=== PATIENT | male | born 2000 | race Caucasian/White ===

== ENCOUNTER 2023-02-13 10:03 | Observation (INO) ==
[2023-02-13] MEDS ORDERED: SODIUM CHLORIDE 0.9% 1,000 ML IV SCH (10:45)
--- NOTE | 2023-02-13 10:47 | Emergency Department Note ---
Impression & Plan Laceration of right chest wall ED Provider Note CHIEF COMPLAINT: Intentional overdose HISTORY OF PRESENT ILLNESS: This 22-year-old male patient past medical history of previous suicide attempt about 4 years ago presents to the emergency department with complaints of Tylenol overdose in an attempt to kill himself. The patient states he took approximately 50 tablets of extra strength Tylenol at 5 AM this morning. Patient also notes after further questioning that he self- mutilating with a razor. He has some dried blood to his anterior chest. When asked if he would like to have us contact one of his parents, he stated not at this time however his father would be his legal contact if needed. He prefers the support of his friend at the bedside. REVIEW OF SYSTEMS: A review of systems was performed with positives and pertinent negatives listed in the history of present illness. 10 systems were reviewed and are otherwise negative. ALLERGIES: see below MEDICATIONS: see below PMH: see below SOCIAL HISTORY: see below DDx: Mood disorder, infection, hypoglycemia, electrolyte abnormalities, toxicologic, trauma, as well as other pathologies. PHYSICAL EXAM: Vital signs reviewed. General: Well-appearing 22 yo male, in no significant distress. HEENT: No scleral icterus, PERRLA, neck supple. Atraumatic. Cardiovascular: Regular rate and rhythm, no extra sounds. Pulmonary: Clear to auscultation bilaterally, normal work of breathing. Abdomen: Soft, nontender, nondistended, positive bowel sounds. Musculoskeletal: Atraumatic, no peripheral edema. Neurologic: Patient awake alert and oriented x 3, speech is clear Psych: Positive SI, negative HI Skin: Warm, dry, no rash several lacerations to the anterior chest wall, notably right pectoralis with dried blood, no active bleeding. EMERGENCY DEPARTMENT COURSE/MDM: This patient was evaluated and appeared to be in no significant distress. IV access was obtained and laboratory work was drawn. Patient was placed on the investigation division sergeant noted to be in a normal sinus rhythm. Patient did receive IV normal saline solution and 4 mg of IV Zofran. The patient's 6-hour Tylenol level was 127. I did speak with poison control who felt the patient was toxic after putting the numbers. Patient's LFTs are within normal limits. IV N-acetylcysteine was initiated and the patient's case was discussed with the hospitalist service. Patient will be admitted by the medical service with psychiatric consultation. He is aware of the plan and voluntary for admission. 302 petitioning statement has been placed on the chart I case management. MONITORING: An order for cardiac monitoring was placed and the patient is noted to be in a normal sinus rhythm at 85 beats per minute. RADIOLOGY: Chest x-ray to my interpretation reveals no evidence of focal lung consolidation or failure. No pneumothorax. Otherwise defer to radiology's over read. EKG: To my interpretation reveals normal sinus rhythm at 69 bpm. QTc is 424. Normal ST segments. No PVC, no PAC. No previous for comparison. DISPOSITION: Admission Past Med/Surg History Medical History Acetaminophen overdose No pertinent past medical history No pertinent family history Surgical History No pertinent past surgical history Social History Smoking Status: Never smoker Hx Alcohol Use: Yes Alcohol type: beer Hx Substance Use: No Preferred Language: Jordanian Communication Ability: Effective Tour Consultant Required: No Beliefs That Will Affect Care: None Current Living Situation: Other Current Living Situation Comment: roommate Feels Safe at Home: Yes Gender Identity: Male Assistive Devices: None Allergies Allergies Allergy/AdvReac Type Severity Reaction Status Date / Time No Known Allergies Allergy Unverified 02/14/23 11:49 Home Meds Home Medications Medication Instructions Recorded Confirmed No Known Home Medications 11/29/22 11/29/22 Results & Data (ED) Vital Signs Vital Signs - 24 hr 02/13/23 10:14 Temperature 36.8 C Temperature Source Temporal Artery Scan Pulse Rate 67 Respiratory Rate 18 Blood Pressure 151/70 H Blood Pressure Mean 97 Pulse Oximetry 98 Oxygen Delivery Method Room Air Sepsis Recent Fever Within 48 Hours No Sepsis New/Unexplained Change in Mental Status No Sepsis Action Taken by Nursing No Action Required Home Medications Current Medication List: was personally reviewed by me Laboratory Data Attestation: I reviewed the patient's lab results. 02/13/23 10:52 02/15/23 05:42 Lab Results 02/13/23 02/13/23 02/13/23 Range/Units 10:52 10:53 12: WBC 7.70 (4.8-10.8) K/ul RBC 4.96 (4.70-6.10) M/uL Hgb 15.0 (14.0-18.0) g/dl Hct 43.3 (42.0-52.0) % MCV 87.3 (80.0-100.0) fL MCH 30.2 (25.0-34.0) pg MCHC 34.6 (32.0-36.0) g/dL RDW Std Deviation 38.2 (36.4-46.3) fL RDW Coeff of Ilya 11.9 (11.5-14.5) % Plt Count 227 (130-400) K/uL MPV 8.8 L (9.4-12.4) fL Immature Gran % (Auto) 0.8 % Neut % (Auto) 69.6 % Lymph % (Auto) 20.5 % [place] % (Auto) 6.9 % Eos % (Auto) 1.6 % Baso % (Auto) 0.6 % Neut # (Auto) 5.36 (1.40-6.50) K/uL Lymph # (Auto) 1.58 (1.20-3.40) K/uL [place] # (Auto) 0.53 (0.11-0.59) K/uL Eos # (Auto) 0.12 (0.00-0.50) K/uL Baso # (Auto) 0.05 (0.00-0.20) K/uL Immature Gran # (Auto) 0.06 (0.01-0.20) K/uL PT 11.9 (9.0-12.0) Seconds INR 1.1 (0.9-1.1) Sodium 138 (136-145) mmol/L Potassium 3.8 (3.5-5.1) mmol/L Chloride 103 (98-107) mmol/L Carbon Dioxide 25 (21-32) mmol/L Anion Gap 10 (3-11) BUN 13 (6-23) mg/dl Creatinine 1.02 (0.6-1.4) mg/dl Est Cr Clr Drug Dosing 132.1 ml/min Est GFR ( Amer) 120.4 ml/min Est GFR (Non-Af Amer) 103.8 ml/min BUN/Creatinine Ratio 12.7 (10-20) Glucose 131 H (70-99(Fasting)) mg/dl Lactate 1.9 (0.4-2.0) mmol/L Calcium 9.3 (8.6-10.3) mg/dl Phosphorus 2.9 (2.5-4.9) mg/dl Magnesium 1.8 (1.7-2.4) mg/dl Total Bilirubin 0.4 (0.2-1.0) mg/dl AST 17 (13-39) U/L ALT 11 (7-52) U/L Alkaline Phosphatase 87 (34-104) U/L Total Protein 7.6 (6.0-8.3) gm/dl Albumin 4.7 (3.4-5.0) gm/dl Globulin 2.9 (2.5-4.0) gm/dl Albumin/Globulin Ratio 1.6 (0.9-2) Salicylates < 3.0 L (3.0-30) mg/dl Acetaminophen 127 H (10-30) ug/ml Ethyl Alcohol mg/dL 50.8 H (<10.0) mg/dl SARS-CoV-2, RNA, NAAT NEGATIVE (NEGATIVE) Administered Medications Discontinued Medications Acetylcysteine (Acetylcysteine Iv 21 Hr Regimen (>40kg)) 1 each IV NOW STA; Protocol Stop: 02/13/23 12:08 Last Admin: 02/13/23 13:21 Dose: Not Given Documented By: EVANGELINA Acetylcysteine (Acetylcysteine Iv 21 Hr Regimen (>40kg)) 13,000 each IV NOW STA; Protocol Stop: 02/13/23 12:41 Last Admin: 02/13/23 13:23 Dose: Not Given Documented By: EVANGELINA Sodium Chloride (Nss) 1,000 mls @ 999 mls/hr IV .Q1H1M ALLEN Stop: 02/13/23 11:45 Last Infusion: 02/13/23 12:48 Dose: Infused Documented By: Admin: 02/13/23 10:51 Dose: 999 mls/hr Documented By: FIORDALIZA Acetylcysteine 8,740 mg/ (Dextrose) 1,043.7 mls @ 62.5 mls/hr IV ONCE ONE; Protocol Stop: 02/14/23 09:49 Last Infusion: 02/14/23 11:58 Dose: Infused Documented By: Admin: 02/13/23 19:03 Dose: 62.5 mls/hr Documented By: DONNA Acetylcysteine 4,370 mg/ (Dextrose) 521.85 mls @ 125 mls/hr IV ONCE ONE; Protocol Stop: 02/13/23 17:18 Last Infusion: 02/13/23 18:47 Dose: Infused Documented By: Admin: 02/13/23 14:36 Dose: 125 mls/hr Documented By: HEMANT Sodium Chloride (Nss) 1,000 mls @ 125 mls/hr IV .Q8H [facility] Stop: 03/15/23 12:14 Last Admin: 02/15/23 12:50 Dose: Not Given Documented By: Infusion: 02/15/23 12:49 Dose: Infused Documented By: Admin: 02/15/23 04:10 Dose: 125 mls/hr Documented By: Infusion: 02/15/23 04:07 Dose: Infused Documented By: Admin: 02/14/23 20:07 Dose: 125 mls/hr Documented By: Infusion: 02/14/23 20:05 Dose: Infused Documented By: Admin: 02/14/23 12:05 Dose: 125 mls/hr Documented By: Infusion: 02/14/23 12:05 Dose: Infused Documented By: Admin: 02/14/23 04:56 Dose: 125 mls/hr Documented By: Infusion: 02/14/23 04:56 Dose: Infused Documented By: Admin: 02/13/23 21:14 Dose: 125 mls/hr Documented By: Infusion: 02/13/23 21:14 Dose: Infused Documented By: Admin: 02/13/23 13:22 Dose: 125 mls/hr Documented By: EVANGELINA Acetylcysteine 13,000 mg/ (Dextrose) 265 mls @ 265 mls/hr IV NOW ONE; Protocol Stop: 02/13/23 13:59 Last Infusion: 02/13/23 14:35 Dose: Infused Documented By: Admin: 02/13/23 13:18 Dose: 265 mls/hr Documented By: EVANGELINA Lidocaine HCl (Lidocaine 1% Local 20 Ml Vial) 20 ml INJ NOW ONE Stop: 02/13/23 12:59 Last Admin: 02/13/23 15:03 Dose: 20 ml Documented By: GABRIELE Miscellaneous (Stat Iv/Im) 1 each N/A NOW STA Stop: 02/13/23 12:08 Last Admin: 02/13/23 13:21 Dose: Not Given Documented By: EVANGELINA Miscellaneous (Stat Iv/Im) 1 each N/A NOW STA Stop: 02/13/23 12:41 Last Admin: 02/13/23 13:23 Dose: Not Given Documented By: EVANGELINA Ondansetron HCl (Ondansetron Inj 2 Mg/Ml 2 Ml Vial) 4 mg IV NOW STA Stop: 02/13/23 10:51 Last Admin: 02/13/23 11:00 Dose: 4 mg Documented By: EVANGELINA Phytonadione (Phytonadione 5 Mg Tab) 5 mg PO NOW STA Stop: 02/14/23 11:40 Last Admin: 02/14/23 12:05 Dose: 5 mg Documented By: DTT Discharge Plan Visit Data Chief Complaint: Overdose (Intentional) Stated Complaint: TYLENOL OVERDOSE ED Provider: Arlet Rivero Discharge Problem: Laceration of right chest wall Patient Disposition: Admitted As Inpatient Discharge Instructions Interventions: ED Discharge Assessment Last Done: 02/13/23 15:16
[2023-02-13] MEDS ORDERED: ONDANSETRON INJ 2 MG/ML 2 ML VIAL IV STA (10:50)
[2023-02-13 11:20] LABS: Appearance Urine Clear (Clear); Bacteria Urine Automated Negative (Negative); Bilirubin Urine Negative (Negative); Blood Urine Negative (Negative); Color Urine Yellow; Glucose Urine UA Negative (Negative); Ketones Urine Negative (Negative); Leukocyte Esterase Urine Negative (Negative); Nitrite Urine Negative (Negative); Protein Urine 1+ (Negative); RBC Urine Automated 0-4 /hpf (0-4); Specific Gravity Urine 1.034 (1.000-1.030); Urobilinogen Urine Negative (Negative); pH Urine 5.5 (4.5-7.5)
[2023-02-13 11:21] LABS: Basophils # (auto) 0.05 K/uL (0.00-0.20); Basophils % (auto) 0.6 %; Eosinophils # (auto) 0.12 K/uL (0.00-0.50); Eosinophils % (auto) 1.6 %; Hematocrit (blood only) 43.3 % (42.0-52.0); Immature Granulocytes # (auto) 0.06 K/uL (0.01-0.20); Immature Granulocytes % (auto) 0.8 %; Lymphocytes # (auto) 1.58 K/uL (1.20-3.40); Lymphocytes % (auto) 20.5 %; Mean Corpuscular Hemoglobin 30.2 pg (25.0-34.0); Mean Corpuscular Hgb Conc 34.6 g/dL (32.0-36.0); Mean Corpuscular Volume 87.3 fL (80.0-100.0); Mean Platelet Volume 8.8 fL (9.4-12.4); Monocytes # (auto) 0.53 K/uL (0.11-0.59); Monocytes % (auto) 6.9 %; Neutrophils # (auto) 5.36 K/uL (1.40-6.50); Neutrophils % (auto) 69.6 %; Platelet Count 227 K/uL (130-400); RDW Coefficient of Variation 11.9 % (11.5-14.5); RDW Standard Deviation 38.2 fL (36.4-46.3); Red Blood Count 4.96 M/uL (4.70-6.10)
[2023-02-13 11:26] LABS: Albumin Globulin Ratio 1.6 (0.9-2); Albumin Level 4.7 gm/dl (3.4-5.0); BUN Creatinine Ratio 12.7 (10-20); Bilirubin,Total 0.4 mg/dl (0.2-1.0); Calcium 9.3 mg/dl (8.6-10.3); Creatinine Clr Calc Pharmacy 132.1 ml/min; Est GFR (African American) 120.4 ml/min; Est GFR (Non-African American) 103.8 ml/min; Globulin 2.9 gm/dl (2.5-4.0); Potassium 3.8 mmol/L (3.5-5.1); Total Protein 7.6 gm/dl (6.0-8.3)
[2023-02-13 11:33] LABS: Amphetamines+Metham, Urine Neg (Neg); Barbiturates, Urine Neg (Neg); Benzodiazepine, Urine Neg (Neg); Cocaine, Urine Neg (Neg); MDMA (Ecstacy), Urine Neg (Neg); Marijuana, Urine Neg (Neg); Methadone, Urine Neg (Neg); Opiate, Urine Neg (Neg); Phencyclidine, Urine Neg (Neg)
[2023-02-13 11:57] LABS: Acetaminophen 127 ug/ml (10-30); Salicylate < 3.0 mg/dl (3.0-30)
--- NOTE | 2023-02-13 12:00 | XRay Report ---
XR chest 1V portable HISTORY: Overdose. COMPARISON: None. FINDINGS: The lungs are clear. Cardiac silhouette is normal in size. No pleural effusions. No pneumot horax. IMPRESSION: No acute process. ACT 112: Negative or not required by law. Electronically signed by: Amish Jesus M.D. 02/13/2023 11:58 AM
--- NOTE | 2023-02-13 12:06 | Electrocardiogram Report ---
Test Reason : Blood Pressure : / mmHG Vent. Rate : 069 BPM Atrial Rate : 069 BPM P-R Int : 182 ms QRS Dur : 100 ms QT Int : 396 ms P-R-T Axes : 096 063 039 degrees QTc Int : 424 ms Normal sinus rhythm Normal ECG No previous ECGs available Confirmed by Daniel Be ([id number]) on 02/13/2023 12:06:04 PM Referred By: Confirmed By:Higinio Be
[2023-02-13] MEDS ORDERED: STAT IV/IM STA ×2 (12:07→12:40)
[2023-02-13] MEDS ORDERED: AcetylCYSTEINE IV 21 HR REGIMEN (>40KG) IV STA ×2 (12:07→12:40)
--- NOTE | 2023-02-13 12:21 | History & Physical Report ---
Date of Service February 13, 2023 Assessment & Plan (1) Major depressive disorder: Plan: Tylenol overdose, approximately 7 and half/8 hours prior to assessment NAC administered due to short timeframe with high-dose ingestion, no evidence of transaminitis or liver failure on presentation Gastric decontamination/activated charcoal not recommended, ingestion greater than 4 hours of presentation Patient does not have metabolic acidosis on admission Total ingestion dose ~25grams, (1/2 bottle of 500mg tylenol tablets). INR pending Lactate normal Tylenol level trended every 12 hours CMP every 12 hours + spot check x1 at 1500 NAC 21-hour protocol. After 21 hrs protocol Continue NAC until Tylenol level less than 10, transaminases at least 25% decreased from peak if they arise, INR less than 2. If these criteria are not met by AM 12/10 call pharmacy to reorder a 4th bag by 930am. Single bag is not able to be ordered through provider orderset. Discussed w/ pharmacy. Depression with suicidality 1 prior suicide attempt 4 years ago with NSAIDs Patient reports he chronically has feelings of depression which is never been diagnosed or treated with either therapy or pharmacologic options. Patient reports nothing has particularly worsened, but he has gotten tired of feeling depressed. He reports he was drinking last night, does not quantify exactly how much, and notes he did not have the intention to kill himself but took Tylenol impulsively after drinking. He has a history of cutting behavior, typically on the left thigh and reports that this helps prevent him from progressing to "worse things "in the past. 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 Patient is agreeable and appreciates referral, is interested in anything to help him feel better including pharmacologic options. Did discuss both therapy and pharmacologic options, with notes that medical therapy takes several weeks generally at least 6-8 with gradual benefit and that goal of improvement will be over many weeks. Patient expressed understanding of this, and agreeable to meeting psychiatry with initiation of SSRI options as able and follow-up for therapy. Patient is aware that additional medications are not going to be prescribed until he is out of the initial liver toxicity. Patient declines to give contact information. Did discuss the potential for liver failure to progress and in the event of an emergency would need a surrogate decision maker. He declines to give any family member contact although notes his parents live in [place]. He is seen at bedside with his friend Amish who can provide contact information or surrogate information in the event of emergency. Patient is a voluntary admission at this time however should he attempt to leave 302 can be filed patient is not able to leave AMA due to active suicidality, suicidal attempt, and ongoing depression (2) Suicide attempt: (3) Tylenol overdose: Plan DVT PPx: SCDs, ambulate CODE: FUll dispo: PCU Diet: safe tray regular History of Present Illness Primary Care Provider: [facility] Valentin is a 22-year-old male with a history of prior suicide attempt 4 years ago with ibuprofen who presents with intentional overdose with suicidality. Patient took 50 tablets of 650 mg/tab erxtra strength Tylenol at 5 AM. Valentin was seen at the bedside with a friend Amish. He reports a longstanding history of depression for many years for which she has not had pharmacologic or counseling treatment. Reports he did have a suicide attempt by anti-inflammatories impulsively around 4 years ago, did not seek treatment following this. He reports his depression has been persistent and while it has not particularly worsened he feels he has just become tired of feeling depressed. He reports he drank alcohol last night, does not quantify how much, and notes he was not drinking with the intention to self-harm or commit suicide but in the french polisher impulsively took half a bottle of Tylenol. He reports he had not been stockpiling medications and had not had a plan previously although he does have chronic persistent passive SI. He does have a history of cutting behavior and in particular cuts to the left thigh which he feels helps prevent him from progressing to "something worse ". 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 He denies recent stressors or worsening of his depression, just that it is always bad. He denies auditory and visual hallucinations, no history of psychosis. Denies family history of depression or suicidality. He denies chronic medical problems and takes no other medications. He denies any coingestions. ER Lab Review: Patient is positive for alcohol, medical alcohol 50.8 on admission Acetaminophen 127 Salicylate negative, UDS negative No transaminitis Mag pending Phos pending EKG normal sinus rhythm, QTc 424 Home Medications Medication Instructions Recorded Confirmed Type No Known Home Medications 11/29/22 11/29/22 History Past Med/Surg History Medical History No pertinent past medical history No pertinent family history Surgical History No pertinent past surgical history Social History Smoking Status: Never smoker Feels Safe at Home: Yes Gender Identity: Male Physical Exam Physical Exam: General: A&Ox3. NAD. Cooperative. Skin: Right lateral abdomen with horizontal superficial lacerations not requiring surgical repair, no ongoing bleeding. Right chest with laceration no ongoing bleeding. Left thigh healed lacs. HEENT: Atraumatic, normocephalic. Pulm: CTAB A&P. -wheezes, -rales, -rhonchi. Symmetrical chest rise. No increased work of breathing. No respiratory distress. Cardiac: RRR, -mrg. Radial pulses intact and symmetrical. Abdominal: Nontender, nondistended, soft. BS present. Results & Data Results & Data Vital Signs (Past 12 Hours) Vital Signs Temp Pulse Pulse Resp BP BP Pulse Ox 02/13/23 12:06 85 02/13/23 10:58 74 18 145/88 H 98 02/13/23 10:14 36.8 C 67 18 151/70 H 98 O2 Del Method 02/13/23 12:06 02/13/23 10:58 Room Air 02/13/23 10:14 Room Air PG Care Time/CCT Total # of Minutes Spent Total Time Spent with Patient: Total time spent is greater than 50% in coordination of care (as documented) at patient's floor/unit and/or counseling patient: Coding Level of Care Code 50103 INT INP/OBS CARE 3/75MIN Diagnoses Major depressive disorder F32.9 Suicide attempt T14.91XA Tylenol overdose T39.1X1A
[2023-02-13 12:49] LABS: INR 1.1 (0.9-1.1); Prothrombin Time 11.9 Seconds (9.0-12.0)
[2023-02-13 12:57] LABS: Magnesium 1.8 mg/dl (1.7-2.4); Phosphorus 2.9 mg/dl (2.5-4.9)
[2023-02-13] MEDS ORDERED: LIDOCAINE 1% LOCAL 20 ML VIAL INJ ONE (12:58)
[2023-02-13] MEDS ORDERED: DEXTROSE 5% IV ONE ×3 (13:00→17:08)
[2023-02-13] MEDS ORDERED: ACETYLCYSTEINE IV ONE ×3 (13:00→17:08)
[2023-02-13] MEDS: SODIUM CHLORIDE 0.9% 1,000 ML IV SCH ×2 (13:22→21:14)
--- NOTE | 2023-02-13 15:56 | Emergency Department Note ---
Impression & Plan Laceration of right chest wall ED Provider Note I was asked to suture this patient's wound by Dr. Rivero. Please see her dictation for full history and physical. The patient was evaluated in room A8. Informed oral consent was obtained from the patient. He has 7 lacerations of significant length, 3 on the right upper chest wall and 4 on the right lateral abdomen. The 4 on the abdomen are thin and have already stopped bleeding. They are covered with scab. They do not require sutures. The 3 linear and almost parallel lacerations on the right upper chest are gaping. Scab is present however the continue to ooze. They are superficial but do require closure. No foreign material was noted. The chest area was prepped with Betadine and draped with sterile towels. Wounds were anesthetized using 20ml 1% buffered lidocaine in a direct infiltration. A thorough inspection was performed. They measured 6 cm, 6 cm, and 5 cm. No foreign material was present in any of the wounds. All scab material was removed using forceps. Wounds were irrigated using normal sterile saline and sterile gauze. There was no additional foreign material visible in the wounds. They were then closed using 4-0 nylon in a simple running fashion for each individual laceration. Excellent wound edge approximation was achieved. Hemostasis was achieved. Wound care precautions were reviewed. Wound care handout was provided. Sutures out in 12-14 days. He may shower. Avoid prolonged soaking or swimming for 2 weeks. Cleanse daily with soap and water and reapply a small amount of bacitracin or Neosporin. Past Med/Surg History Medical History No pertinent past medical history No pertinent family history Surgical History No pertinent past surgical history Social History Smoking Status: Never smoker Feels Safe at Home: Yes Gender Identity: Male Home Meds Home Medications Medication Instructions Recorded Confirmed No Known Home Medications 11/29/22 11/29/22 Results & Data (ED) Vital Signs Vital Signs - 24 hr 02/13/23 10:14 02/13/23 10:58 02/13/23 12:06 Temperature 36.8 C Temperature Source Temporal Artery Scan Pulse Rate 67 85 Pulse Rate [Apical] 74 Respiratory Rate 18 18 Respiratory Effort / Characteristics Non-Labored Respiratory Depth Normal Blood Pressure 151/70 H Blood Pressure [Left Arm] 145/88 H Blood Pressure Mean 97 Blood Pressure Mean [Left Arm] 107 Pulse Oximetry 98 98 Oxygen Delivery Method Room Air Room Air Sepsis Recent Fever Within 48 Hours No Sepsis New/Unexplained Change in Mental Status No Sepsis Action Taken by Nursing No Action Required 02/13/23 12:46 Temperature Temperature Source Pulse Rate Pulse Rate [Apical] Respiratory Rate Respiratory Effort / Characteristics Respiratory Depth Blood Pressure Blood Pressure [Left Arm] Blood Pressure Mean Blood Pressure Mean [Left Arm] Pulse Oximetry 97 Oxygen Delivery Method Room Air Sepsis Recent Fever Within 48 Hours Sepsis New/Unexplained Change in Mental Status Sepsis Action Taken by Nursing Laboratory Data 02/13/23 10:52 02/13/23 15:31 Lab Results 02/13/23 02/13/23 02/13/23 Range/Units 10:52 10:53 12:23 WBC 7.70 (4.8-10.8) K/ul RBC 4.96 (4.70-6.10) M/uL Hgb 15.0 (14.0-18.0) g/dl Hct 43.3 (42.0-52.0) % MCV 87.3 (80.0-100.0) fL MCH 30.2 (25.0-34.0) pg MCHC 34.6 (32.0-36.0) g/dL RDW Std Deviation 38.2 (36.4-46.3) fL RDW Coeff of Ilya 11.9 (11.5-14.5) % Plt Count 227 (130-400) K/uL MPV 8.8 L (9.4-12.4) fL Immature Gran % (Auto) 0.8 % Neut % (Auto) 69.6 % Lymph % (Auto) 20.5 % [place] % (Auto) 6.9 % Eos % (Auto) 1.6 % Baso % (Auto) 0.6 % Neut # (Auto) 5.36 (1.40-6.50) K/uL Lymph # (Auto) 1.58 (1.20-3.40) K/uL [place] # (Auto) 0.53 (0.11-0.59) K/uL Eos # (Auto) 0.12 (0.00-0.50) K/uL Baso # (Auto) 0.05 (0.00-0.20) K/uL Immature Gran # (Auto) 0.06 (0.01-0.20) K/uL PT 11.9 (9.0-12.0) Seconds INR 1.1 (0.9-1.1) Sodium 138 (136-145) mmol/L Potassium 3.8 (3.5-5.1) mmol/L Chloride 103 (98-107) mmol/L Carbon Dioxide 25 (21-32) mmol/L Anion Gap 10 (3-11) BUN 13 (6-23) mg/dl Creatinine 1.02 (0.6-1.4) mg/dl Est Cr Clr Drug Dosing 132.1 ml/min Est GFR ( Amer) 120.4 ml/min Est GFR (Non-Af Amer) 103.8 ml/min BUN/Creatinine Ratio 12.7 (10-20) Glucose 131 H (70-99(Fasting)) mg/dl Lactate 1.9 (0.4-2.0) mmol/L Calcium 9.3 (8.6-10.3) mg/dl Phosphorus 2.9 (2.5-4.9) mg/dl Magnesium 1.8 (1.7-2.4) mg/dl Total Bilirubin 0.4 (0.2-1.0) mg/dl AST 17 (13-39) U/L ALT 11 (7-52) U/L Alkaline Phosphatase 87 (34-104) U/L Total Protein 7.6 (6.0-8.3) gm/dl Albumin 4.7 (3.4-5.0) gm/dl Globulin 2.9 (2.5-4.0) gm/dl Albumin/Globulin Ratio 1.6 (0.9-2) Salicylates < 3.0 L (3.0-30) mg/dl Acetaminophen 127 H (10-30) ug/ml Ethyl Alcohol mg/dL 50.8 H (<10.0) mg/dl SARS-CoV-2, RNA, NAAT NEGATIVE (NEGATIVE) Administered Medications Sodium Chloride (Nss) 1,000 mls @ 125 mls/hr IV .Q8H ALLEN Stop: 03/15/23 12:14 Last Admin: 12/09/23 13:22 Dose: 125 mls/hr Documented By: EVANGELINA Discontinued Medications Acetylcysteine (Acetylcysteine Iv 21 Hr Regimen (>40kg)) 1 each IV NOW STA; Protocol Stop: 02/13/23 12:08 Last Admin: 02/13/23 13:21 Dose: Not Given Documented By: EVANGELINA Acetylcysteine (Acetylcysteine Iv 21 Hr Regimen (>40kg)) 13,000 each IV NOW STA; Protocol Stop: 02/13/23 12:41 Last Admin: 02/13/23 13:23 Dose: Not Given Documented By: EVANGELINA Sodium Chloride (Nss) 1,000 mls @ 999 mls/hr IV .Q1H1M ALLEN Stop: 02/13/23 11:45 Last Infusion: 02/13/23 12:48 Dose: Infused Documented By: Admin: 02/13/23 10:51 Dose: 999 mls/hr Documented By: FIORDALIZA Acetylcysteine 4,370 mg/ (Dextrose) 521.85 mls @ 125 mls/hr IV ONCE ONE; Protocol Stop: 02/13/23 17:18 Last Admin: 02/13/23 14:36 Dose: 125 mls/hr Documented By: HEMANT Acetylcysteine 13,000 mg/ (Dextrose) 265 mls @ 265 mls/hr IV NOW ONE; Protocol Stop: 02/13/23 13:59 Last Infusion: 02/13/23 14:35 Dose: Infused Documented By: Admin: 02/13/23 13:18 Dose: 265 mls/hr Documented By: EVANGELINA Lidocaine HCl (Lidocaine 1% Local 20 Ml Vial) 20 ml INJ NOW ONE Stop: 02/13/23 12:59 Last Admin: 02/13/23 15:03 Dose: 20 ml Documented By: GABRIELE Miscellaneous (Stat Iv/Im) 1 each N/A NOW STA Stop: 02/13/23 12:08 Last Admin: 02/13/23 13:21 Dose: Not Given Documented By: EVANGELINA Miscellaneous (Stat Iv/Im) 1 each N/A NOW STA Stop: 02/13/23 12:41 Last Admin: 02/13/23 13:23 Dose: Not Given Documented By: EVANGELINA Ondansetron HCl (Ondansetron Inj 2 Mg/Ml 2 Ml Vial) 4 mg IV NOW STA Stop: 02/13/23 10:51 Last Admin: 02/13/23 11:00 Dose: 4 mg Documented By: EVANGELINA Imaging Data Radiologist's Impression: Chest X-Ray 02/13/23 10:34 XR chest 1V portable HISTORY: Overdose. COMPARISON: None. FINDINGS: The lungs are clear. Cardiac silhouette is normal in size. No pleural effusions. No pneumothorax. IMPRESSION: No acute process. ACT 112: Negative or not required by law. Electronically signed by: Amish Jesus M.D. 02/13/2023 11:58 AM Discharge Plan Visit Data Chief Complaint: Overdose (Intentional) Stated Complaint: TYLENOL OVERDOSE ED Provider: Arlet Rivero Discharge Problem: Laceration of right chest wall Patient Disposition: Admitted As Inpatient Discharge Instructions Interventions: ED Discharge Assessment Last Done: 02/13/23 15:16
[2023-02-13 16:17] LABS: Albumin Globulin Ratio 1.7 (0.9-2); Albumin Level 4.2 gm/dl (3.4-5.0); BUN Creatinine Ratio 11.1 (10-20); Bilirubin,Total 0.5 mg/dl (0.2-1.0); Calcium 8.6 mg/dl (8.6-10.3); Creatinine Clr Calc Pharmacy 136.1 ml/min; Est GFR (African American) 124.8 ml/min; Est GFR (Non-African American) 107.7 ml/min; Globulin 2.5 gm/dl (2.5-4.0); Potassium 4.5 mmol/L (3.5-5.1); Total Protein 6.7 gm/dl (6.0-8.3)
[2023-02-13 22:31] LABS: Albumin Globulin Ratio 1.6 (0.9-2); Albumin Level 4.1 gm/dl (3.4-5.0); BUN Creatinine Ratio 11.8 (10-20); Bilirubin,Total 0.6 mg/dl (0.2-1.0); Calcium 8.7 mg/dl (8.6-10.3); Creatinine Clr Calc Pharmacy 132.1 ml/min; Est GFR (African American) 120.4 ml/min; Est GFR (Non-African American) 103.8 ml/min; Globulin 2.5 gm/dl (2.5-4.0); Potassium 3.7 mmol/L (3.5-5.1); Total Protein 6.6 gm/dl (6.0-8.3)
[2023-02-13 22:40] LABS: INR 1.2 (0.9-1.1)
[2023-02-14] MEDS: SODIUM CHLORIDE 0.9% 1,000 ML IV SCH ×3 (04:56→20:07)
--- NOTE | 2023-02-14 07:27 | Hospitalist Progress Note ---
Date of Service February 14, 2023 Assessment & Plan (1) Major depressive disorder: (2) Tylenol overdose: (3) Suicide attempt: Plan Pt is a 22 yo male with a past medical history of MDD with prior suicide attempt who presents to the hospital on 02/13/23 for intentional tylenol overdose. Tylenol level now normal and pt stable and doing well medically. Vitals stable. Awaiting psych evaluation. Major depressive disorder: Tylenol overdose, approximately 7 and half/8 hours prior to assessment NAC administered due to short timeframe with high-dose ingestion, no evidence of transaminitis or liver failure on presentation no metabolic acidosis on admission, lactate normal Total ingestion dose ~25grams, - poison control contacted and input appreciated, have now signed off, NAC 21- hour protocol completed , tylenol level today 4 Depression with suicidality 1 prior suicide attempt 4 years ago with NSAIDs Patient reports he chronically has feelings of depression which is never been diagnosed or treated with either therapy or pharmacologic options. Patient reports nothing has particularly worsened, but he has gotten tired of feeling depressed. He reports he was drinking last night, does not quantify exactly how much, and notes he did not have the intention to kill himself but took Tylenol impulsively after drinking. He has a history of cutting behavior, typically on the left thigh and reports that this helps prevent him from progressing to "worse things "in the past. 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 Patient is agreeable and appreciates referral, is interested in anything to help him feel better including pharmacologic options. Did discuss both therapy and pharmacologic options, with notes that medical therapy takes several weeks generally at least 6-8 with gradual benefit and that goal of improvement will be over many weeks. Patient expressed understanding of this, and agreeable to meeting psychiatry with initiation of SSRI options as able and follow-up for therapy. Patient is aware that additional medications are not going to be prescribed until he is out of the initial liver toxicity. Patient declines to give contact information. Did discuss the potential for liver failure to progress and in the event of an emergency would need a surrogate decision maker. He declines to give any family member contact although notes his parents live in [place]. He is seen at bedside with his friend Amish who can provide contact information or surrogate information in the event of emergency. Patient is a voluntary admission at this time however should he attempt to leave 302 can be filed patient is not able to leave AMA due to active suicidality, suicidal attempt, and ongoing depression DVT PPx: SCDs, ambulate CODE: FUll Diet: safe tray regular Admission and Anticipated Discharge Date Admission Date: February 13, 2023 Supervising Physician Co-Signing Physician Notes I personally examined the patient and verified all motley points of history and exam, discussed case, and agree with decision making with Dr Avendaño feeling oK. no current SI. notes that he's been depressed for a while but mostly relates APAP ingestion was impulsive while drinking; relates he also plans to stop drinking vitals noted nad heent nc at mmm breathing unlabored no accessory muscles good e ffort skin no rashes no pallor or icterus depression, APAP OD - no transaminitis, APAP level dropped. INR stable at 1.2. suspect that he will come through OD ok - no clear need for ongoing NAC. INR slightly up but was also that way last night and was 1.1 on arrival -> without transaminitis or elevated bili - doubt this is liver disease related as much as high baseline. will give vitamin K to ensure he corrects. await psych input - if they feel he would benefit from inpt psych then will follow their direction; if they feel he would be OK for outpt would feel that appropriate based on my i nteraction with him - would need resources set up, etc. check CMP, APAP, INR this evening and if all still reassuring then would be OK for medical discharge either way - either to inpt psych or to home/outpt. Subjective Pt is a 22 yo male with a past medical history of MDD with prior suicide attempt who presents to the hospital on 02/13/23 for intentional tylenol overdose. Today, patient states he is feeling okay. He has tolerated oral intake without any issues and denies abdominal pain. No questions or complaints at this time. Nursing staff deny any concerns at this time. Review of Systems Review of Systems: Cardio: denies chest pain, Resp: denies shortness of breath, cough GI: denies abdominal pain, nausea, vomiting, Physical Exam Physical Exam: General:Alert and oriented, no acute distress, HEENT: Normocephalic, moist oral mucosa, Cardio: Regular rate and rhythm, no murmur, Resp:Lungs clear to auscultation b/l, no wheezes or rhonchi, GI: Soft and nontender, bowel sounds active Skin: Warm, pink, dry, Results & Data Results & Data Vital Signs (Past 12 Hours) Vital Signs Temp Pulse Pulse Resp BP BP Pulse Ox 02/14/23 03:10 36.6 C 55 L 16 147/84 H 97 02/14/23 00:10 60 150/83 H 02/13/23 23:00 36.8 C 63 18 170/103 H 98 02/13/23 22:00 65 02/13/23 20:40 66 02/13/23 20:10 37 C 79 16 154/95 H 97 O2 Del Method 02/14/23 03:10 Room Air 02/14/23 00:10 02/13/23 23:00 Room Air 02/13/23 22:00 02/13/23 20:40 02/13/23 20:10 Room Air Resident Activity Tracking Resident Involvement: Resident Care Provided Care Provided: Adult Hospital Medicine
[2023-02-14 07:39] LABS: Albumin Globulin Ratio 1.7 (0.9-2); Albumin Level 3.9 gm/dl (3.4-5.0); Bilirubin Direct 0.2 mg/dl (0-0.2); Bilirubin,Total 0.9 mg/dl (0.2-1.0); Globulin 2.3 gm/dl (2.5-4.0); Total Protein 6.2 gm/dl (6.0-8.3)
[2023-02-14 07:54] LABS: BUN Creatinine Ratio 7.3 (10-20); Creatinine Clr Calc Pharmacy 122.5 ml/min; Est GFR (African American) 109.9 ml/min; Est GFR (Non-African American) 94.8 ml/min; Potassium 4.3 mmol/L (3.5-5.1)
[2023-02-14 08:08] LABS: INR 1.2 (0.9-1.1); Prothrombin Time 12.8 Seconds (9.0-12.0)
[2023-02-14] MEDS ORDERED: PHYTONADIONE 5 MG TAB PO STA (11:39)
--- NOTE | 2023-02-14 18:25 | Billing Data ---
Date of Service February 14, 2023 Coding Level of Care Code 63852 SUB INP/OBS CARE MIN
[2023-02-14 20:15] LABS: Albumin Globulin Ratio 1.6 (0.9-2); Albumin Level 4.2 gm/dl (3.4-5.0); BUN Creatinine Ratio 9.7 (10-20); Bilirubin,Total 0.3 mg/dl (0.2-1.0); Calcium 9.2 mg/dl (8.6-10.3); Creatinine Clr Calc Pharmacy 130.8 ml/min; Est GFR (Non-African American) 102.6 ml/min; Globulin 2.7 gm/dl (2.5-4.0); Potassium 3.9 mmol/L (3.5-5.1); Total Protein 6.9 gm/dl (6.0-8.3)
[2023-02-14 20:23] LABS: INR 1.1 (0.9-1.1); Prothrombin Time 11.9 Seconds (9.0-12.0)
--- NOTE | 2023-02-14 21:17 | Psychiatric Consultation ---
Date of Consultation February 14, 2023 Impression / Recommendations Impression 22 y/o man with chronic suicidality and self-injurious behavior by cutting and a previous overdose attempt 4 years ago for which he didn't seek treatment. He would seem to meet criteria for a major depressive episode, though I can't tell if it's recurrent or a single prolonged episode. Despite his disavowal, alcohol use seems to be a problem for him. He is currently minimizing the severity of his cutting (which required sutures of his chest) and overdose (which is requiring n-acetylcysteine) and saying that he thinks it would be reasonable for him to be discharged to home. He's declining to share information with family. He's (mostly) voluntary for psychiatric admission, though if this were to change he clearly meets criteria for section 302 involuntary emergency psychiatric admission. In the conext of recent signficant overdose I think it would be best to wait to consider starting psychiatric medication until he's been transferred to the psychiatric unit. Overall I spent a total of 55 minutes on the floor for this consultation assessment including review of chart records, review of test results, risk assessment, discussion with the psychiatric liaison nurse, and documentation in the electronic health record. (1) Major depressive disorder: (2) Acetaminophen overdose: Plan Transfer to U once medically cleared Pt is currently voluntary, but if he insists on discharge prior to transfer to psychiatric service we will need to start involuntary emergency psychiatric admission process under section 302. Psych History Identifying Data MARYCARMEN MURRAY is a 22-year-old M with no previous formal psychiatric history, admitted on 02/13/2023 for acetaminophen overdose. Consult is by the hospitalist service for "MDD, SI, initial tx". Chief Complaint "Not that great". History of Present Illness As part of a thorough review of the available medical records, I have read and confirmed the following note by the ED physician: "This 22-year-old male patient past medical history of previous suicide attempt about 4 years ago presents to the emergency department with complaints of Tylenol overdose. The patient states he took approximately 50 tablets of extra strength Tylenol at 5 AM this morning." the following note by the hospitalist: "Marycarmen is a 22-year-old male with a history of prior suicide attempt 4 years ago with ibuprofen who presents with intentional overdose with suicidality. Patient took 50 tablets of 650 mg/tab erxtra strength Tylenol at 5 AM. Marycarmen was seen at the bedside with a friend Amish. He reports a longstanding history of depression for many years for which she has not had pharmacologic or counseling treatment. Reports he did have a suicide attempt by anti-inflammatories impulsively around 4 years ago, did not seek treatment following this. He reports his depression has been persistent and while it has not particularly worsened he feels he has just become tired of feeling depressed. He reports he drank alcohol last night, does not quantify how much, and notes he was not drinking with the intention to self-harm or commit suicide but in the compo caster impulsively took half a bottle of Tylenol. He reports he had not been stockpiling medications and had not had a plan previously although he does have chronic persistent passive SI. He does have a history of cutting behavior and in particular cuts to the left thigh which he feels helps prevent him from progressing to "something worse ". 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 He denies recent stressors or worsening of his depression, just that it is always bad. He denies auditory and visual hallucinations, no history of psychosis. Denies family history of depression or suicidality. He denies chronic medical problems and takes no other medications. He denies any coingestions." the following note by the ED psychiatric manager garage: "Met with Marycarmen at bedside accompanied by Dr. Rivero to complete brief mental health assessment. He states that he ingested "maybe 50" 500mg Tylenol tablets this morning at approximately 0500. When asked if this overdose was done in an attempt to end his life he responded, "I suppose that was the goal... I don't want to currently but I was drunk and just did it." He does admit to suicidal ideation for awhile even while sober. History of suicide attempt four years ago by means of ibuprofen overdose. Marycarmen describes this as "not as serious" and did not seek medical attention afterwards. While RNs were obtaining EKG for Marycarmen, his chest was noted to be covered in dried blood. Marycarmen admitted to cutting himself with a razor. He does endorse history of self-injurious behavior. Marycarmen does not wish to alert his parents at this time of his suicide attempt. He relays they are somewhat local, living in the [place] area. His friend Amish is here for support and is the one who brought him to the hospital this morning when Marycarmen advised him that he overdosed." and the following note by the psychiatric liaison nurse: "Met with patient for consult service/initial psych assessment. Patient resting in bed, 1:1 at bedside. He is A&Ox3, calm, cooperative and pleasant. Patient is s/p intentional overdose on Tylenol while intoxicated (ETOH). He is a [employer] student, majoring in aitainment. Patient lives with roommates off campus. Father lives in [place], mother lives in [place]. Patient reports a good relationship with father and has some contact with mother, but not as often. Patient's parents are unaware of hospitalization or events that have transpired; he DOES NOT want any information provided to parents and identifies his roommate/friend Amish as his primary contact and support. Patient reports a history of depression since adolescents. He has a history of SIB via cutting and it typically occurs when drinking/intoxicated; reports cutting 2x since October, including episode prior to overdose. He admits to 1 suicide attempt ~ 4 years ago via overdose on Ibuprofen, he did not report this therefore received no treatment. He denies history of inpatient or outpatient psychiatric care, including medications. Patient is unable to definitively state if his intentions were to after taking his recent overdose. He denies any specific triggers or stressors that caused him to feel suicidal. He reports feeling "grateful" that he is alive and does not feel this will happen again. He does not feel alcohol is problematic since he has never been through withdrawal. He does note that he becomes more depressed and impulsive while intoxicated hence, his plans to reduce/elimi valentina drinking. He would like to establish a psychiatric provider as well as therapy. Explained mental health process/medical clearance, 201 vs 302 and outpatient options. Patient prefers to be discharged with outpatient services when medically clear. He is aware psychiatrist will see him to give formal recommendations, he is unable to leave AMA at this time. Patient's roommate, Amish, arrived to visit with patient and was asked to wait in waiting room. Amish was notified when liaison was finished with patient. Amish made aware that patient did not give consent to release any information at this time. Provided general information about mental health process/medical clearance, 201 vs 302 and outpatient options. Amish reports he and patient talk often about feelings/suicidal thoughts and self harm thoughts. Amish is graduating next weekend and will move out of the apartment on Wednesday 02/21 (moving 3 hours away), another friend will be moving in (patient's friend from high school). Amish has concerns because patient does not talk openly with other friends/roommates. He has been encouraging patient to seek professional outpatient/therapy for some time but he would decline; he has also encouraged patient to reach out to his father but patient does not want to "burden" anyone else. Amish is very supportive and plans to continue to be as supportive as possible even after graduation. " Review of the medical record reveals no previous or outside psychiatric records as such, but had one ED visit with suicidal thoughts in November 2022. Review of pertinent labs reveals they are largely noncontributory except for acetaminophen level of 127 ug/mL. A urine toxicology screen was positive for acetaminophen only. BAL was 50.8 mg/dL. Pt endorses history as above. He has chronic, usually passive suicidal thoughts and uses cutting to relieve stress, especially when drinking. He has a history of NSAID overdose while intoxicated 4 years ago for which he did not seek treatment. He says he's had no previous psychiatric contact. He says he's been "depressed for years". Despite the apparent association between alcohol use and his suicide attempts, he doesn't see alcohol as a problem or as precipitating suicidal behavior. He's superficially willing to accept psychiatric treatment, albeit under some protest, because he thinks it would be OK for him to go home. He's declined to provide MYRNA for family because he doesn't want to "burden" them. Past Psychiatric History Previous Psych History: none Outpatient Services: none Previous Psych Admissions: none History of Previous Suicide Attempt: Yes Describe Attempts in the Past: NSAID overdose ca 4 years ago while intoxicated Allergies Allergy/AdvReac Type Severity Reaction Status Date / Time No Known Allergies Allergy Unverified 02/14/23 11:49 Home Medications Medication Instructions Recorded Confirmed Type No Known Home Medications 11/29/22 11/29/22 History Patient History Medical History (Updated 02/14/23 @ 21:33 by Ej Mederos MD) Acetaminophen overdose No pertinent past medical history No pertinent family history Surgical History No pertinent past surgical history Social History Smoking Status: Never smoker Hx Alcohol Use: Yes Alcohol type: beer Hx Substance Use: No Preferred Language: Uzbek Communication Ability: Effective 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 Beliefs That Will Affect Care: None Current Living Situation: Other Current Living Situation Comment: roommate Feels Safe at Home: Yes Safety Concerns: Feels Safe At This Time Gender Identity: Male Assistive Devices: None Physical Exam Psychiatric: Orientation: alert, oriented to person, oriented to place, oriented to time and + guarded Apperance: appropriately dressed, + disheveled and appeared stated age Eye Contact: + poor eye contact Motor Behavior: no abnormal motor movements Speech: normal rate/rhythm/volume of speech Affect: + constricted affect Mood: + depressed mood and + anxious mood Thought Process: + concrete thought process Thought Content: + cognitive distortions and reality based without delusions Suicidal Thoughts: denies suicidal plan and denies suicidal intent; + reports suicidal thoughts Homicidal Thoughts: denies homicidal thoughts Hallucinations: no auditory hallucinations and no visual hallucinations Cognition: recent memory grossly intact, remote memory grossly intact, attention grossly intact and language grossly intact Estimated Intelligence: consistent with education level Insight: + limited insight Judgment: + poor judgement Vital Signs (Past 24 Hours): Last Vital Signs Temp 36.9 C 02/14/23 16:00 Pulse 69 02/14/23 16:00 Resp 18 02/14/23 16:00 BP 145/74 H 02/14/23 16:00 Pulse Ox 97 02/14/23 16:00 O2 Del Method Room Air 02/14/23 16:00 Review of Systems Psychiatric: + depression, + hopelessness, + anhedonia and + suicidal ideation; no paranoia and no hallucinations Results & Data (PSY) Medications Administered Sodium Chloride (Nss) 1,000 mls @ 125 mls/hr IV .Q8H ALLEN Stop: 03/15/23 12:14 Last Admin: 02/14/23 12:05 Dose: 125 mls/hr Documented By: Infusion: 02/14/23 12:05 Dose: Infused Documented By: Admin: 02/14/23 04:56 Dose: 125 mls/hr Documented By: Infusion: 12/10/23 04:56 Dose: Infused Documented By: Admin: 02/13/23 21:14 Dose: 125 mls/hr Documented By: Infusion: 02/13/23 21:14 Dose: Infused Documented By: Admin: 02/13/23 13:22 Dose: 125 mls/hr Documented By: EVANGELINA Coding Level of Care Code 04720 [facility] Intl Hosp Care Lvl 2 Diagnoses Major depressive disorder F32.9 Acetaminophen overdose T39.1X1A Time Spent (min) 55
[2023-02-15] MEDS: SODIUM CHLORIDE 0.9% 1,000 ML IV SCH ×2 (04:10→12:50)
[2023-02-15 06:43] LABS: Albumin Globulin Ratio 1.6 (0.9-2); Albumin Level 4.1 gm/dl (3.4-5.0); BUN Creatinine Ratio 8.3 (10-20); Bilirubin,Total 0.7 mg/dl (0.2-1.0); Calcium 9.5 mg/dl (8.6-10.3); Creatinine Clr Calc Pharmacy 123.6 ml/min; Est GFR (African American) 111.1 ml/min; Est GFR (Non-African American) 95.8 ml/min; Globulin 2.5 gm/dl (2.5-4.0); Potassium 3.7 mmol/L (3.5-5.1); Total Protein 6.6 gm/dl (6.0-8.3)
[2023-02-15 07:12] LABS: INR 1.1 (0.9-1.1); Prothrombin Time 11.8 Seconds (9.0-12.0)
--- NOTE | 2023-02-15 12:35 | Discharge Summary ---
Date of Service February 15, 2023 Admission HPI Per Admitting Provider Valentin is a 22-year-old male with a history of prior suicide attempt 4 years ago with ibuprofen who presents with intentional overdose with suicidality. Patient took 50 tablets of 650 mg/tab erxtra strength Tylenol at 5 AM. Valentin was seen at the bedside with a friend Amish. He reports a longstanding history of depression for many years for which she has not had pharmacologic or counseling treatment. Reports he did have a suicide attempt by anti-inflammatories impulsively around 4 years ago, did not seek treatment following this. He reports his depression has been persistent and while it has not particularly worsened he feels he has just become tired of feeling depressed. 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 He reports he had not been stockpiling medications and had not had a plan previously although he does have chronic persistent passive SI. He does have a history of cutting behavior and in particular cuts to the left thigh which he feels helps prevent him from progressing to "something worse ". 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 He denies recent stressors or worsening of his depression, just that it is always bad. He denies auditory and visual hallucinations, no history of psychosis. Denies family history of depression or suicidality. He denies chronic medical problems and takes no other medications. He denies any coingestions. ER Lab Review: Patient is positive for alcohol, medical alcohol 50.8 on admission Acetaminophen 127 Salicylate negative, UDS negative No transaminitis Mag pending Phos pending EKG normal sinus rhythm, QTc 424 Admission Exam Per Admitting Provider General: A&Ox3. NAD. Cooperative. Skin: Right lateral abdomen with horizontal superficial lacerations not requiring surgical repair, no ongoing bleeding. Right chest with laceration no ongoing bleeding. Left thigh healed lacs. HEENT: Atraumatic, normocephalic. Pulm: CTAB A&P. -wheezes, -rales, -rhonchi. Symmetrical chest rise. No increased work of breathing. No respiratory distress. Cardiac: RRR, -mrg. Radial pulses intact and symmetrical. Abdominal: Nontender, nondistended, soft. BS present. Principal Diagnosis Major Depressive Disorder with Suicidality Discharge Exam General: AAOx3, calm, afebrile, in no acute distress Cardio: regular rate and rhythm, no rubs/murmurs/gallops, no additional heart sounds Respiratory: CTA bilaterally, symmetrical chest rise with respiration, no increase work of breathing, no respiratory distress Abdomen: soft, depressible, non-distended, non-tender to palpation in all 4 quadrants. Bowel sounds present. Horizontal lacerations with crusted blood noted over right flank and old/healed horizontal incisions in same side. No other lesions or hematomas noted on inspection. No masses palpated. Extremities: no swelling in bilateral LE. No calf tenderness on bilateral LE. Bilateral UE normal to inspection. Discharge Data Allergies Allergy/AdvReac Type Severity Reaction Status Date / Time No Known Allergies Allergy Unverified 02/14/23 11:49 Consultations 02/13/23 12:59 ED Decision to Admit Stat 02/13/23 13:00 Consult Behavioral Health Liaison Routine Consult Psychiatry Routine Hospital Course (1) Major depressive disorder: (2) Tylenol overdose: (3) Suicide attempt: Plan Pt is a 22 yo male with a past medical history of MDD with prior suicide attempt who presents to the hospital on 02/13/23 for intentional Tylenol overdose. Major depressive disorder: Tylenol overdose NAC administered due to short timeframe with high-dose ingestion, no evidence of transaminitis or liver failure on presentation no metabolic acidosis on admission, lactate normal Total ingestion dose ~25grams, - poison control contacted and input appreciated, have now signed off, NAC 21- hour protocol completed - Last Tylenol level < 3 Depression with suicidality 1 prior suicide attempt 4 years ago with NSAIDs Patient reports he chronically has feelings of depression which is never been diagnosed or treated with either therapy or pharmacologic options. Patient reports nothing has particularly worsened, but he has gotten tired of feeling depressed. He reports he was drinking last night, does not quantify exactly how much, and notes he did not have the intention to kill himself but took Tylenol impulsively after drinking. He has a history of cutting behavior, typically on the left thigh and reports that this helps prevent him from progressing to "worse things "in the past. 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 Patient declines to give contact information. Did discuss the potential for liver failure to progress and in the event of an emergency would need a surrogate decision maker. He declines to give any family member contact although notes his parents live in [place]. He is seen at bedside with his friend Amish who can provide contact information or surrogate information in the event of emergency. Patient was evaluated at bedside and found to be clinically and hemodynamically stable, AAOx3, and in no acute distress. Patient to be discharged from our service and voluntarily admitted to psychiatric hospital ([facility]) for further management of his MDD with suicidality (e.g. therapy, medication, etc.). Total Time Total Time Spent Total Time Spent (In Minutes): As per attending attestation. Discharge Plan Discharge Items Patient Disposition: Transfer Behavioral Health Fac Reason For Visit: APAP OVERDOSE, SI Discharge Diagnosis: Major Depressive Disorder with Suicidality Activity: Resume your previous activity Non-emergency contact: Primary Care Provider Call non-emergency contact if: your symptoms worsen Follow-up/Referrals: PCP,NO [Primary Care Provider] - Diet: Regular Addtl Attending Provider Instructions: You were admitted to the hospital after toxic ingestion of Acetaminophen (Tylenol). You were treated with n-acetylcysteine, which served as an antidote to this. We were also monitoring your liver function as the excess consumption of this medication can lead to liver damage or liver failure. Throughout your admission, your liver enzymes were within normal range and your labs remained stable. Today, we find you to be clinically and hemodynamically stable to be discharged. A discharge summary will be sent to your primary care physician to ensure continuity of care. Please bring this discharge summary with you to your next office appointment so that your provider can review it at that time. Follow-up appointments: Make a follow-up appointment with your PCP within the next week. It is very important that you follow up with them shortly after discharge from the hospital. Keep all your follow-up appointments as already scheduled. If you cannot make an appointment, notify your provider. Medications: Your medication list has been reviewed and reconciled upon discharge to ensure accuracy and continuity of care. An updated list of all your medications is included with your hospital discharge paperwork. Please review this list closely, and make note of any changes. If you have any issues filling these prescriptions, please call [phone] and ask to leave a message for Dr. Barrow. Take your medications as instructed; do not skip a dose of your medicines. Make sure all of your doctors know every medicine you are taking (including [id number] medicines, vitamins, and supplements). Call your primary care provider before taking any new medicines (including over- the-counter medicines, vitamins, and supplements), because some of these may interact with your current medications, or may make your symptoms worse. Tell your primary care provider if you cannot afford your medications. CONTACT YOUR PRIMARY CARE PROVIDER if you experience any of the following: Worsening of symptoms Fever, chills, or fatigue Difficulty following your treatment plan, or difficulty taking medications CALL 911 OR GO TO THE EMERGENCY DEPARTMENT if you experience any of the followin g: Sudden, severe abdominal pain or nausea/vomiting Severe chest pain, or chest pain that radiates (moves) to your jaw or arm Sudden, severe shortness of breath or difficulty breathing Thank you for allowing us to participate in your care. Pending Studies at Discharge: No Stand-Alone Forms: My [facility] Medications and DC Order Prescriptions: No Action No Known Home Medications Discharge Orders: Discharge Order (Routine); Ordered 02/15/23 Ordered By: Felicity Barrow Admission Data Admit Date/Time: 02/13/23 12:59 Attending Provider: Citlaly Cook Admit Provider: Chalo Benton Primary Care Provider: PCP,NO Other Providers: Chalo Benton; Ana Rincon; Sierra Robledo; Lauri Tomas; Ej Mederos Supervising Physician Co-Signing Physician Notes Resident Physician Supervision Note: I independently interviewed and examined the patient and verified the motley history and physical, reviewed labs and image studies and agree with resident findings and care plan. No concerns this am. Willing to go for psych admission. feeling oK. vitals noted nad heent nc at mmm breathing unlabored no accessory muscles good effort skin no rashes no pallor or icterus depression, APAP OD - no transaminitis, APAP level dropped. INR 1.1 NAC not recommended per poison control. Evaluated by psych - To be transferred to [facility] once medically clear. Medically cleared and discharged to [facility]. Resident Activity Tracking Resident Involvement: Resident Care Provided Care Provided: Adult [facility]
== END 2023-02-15 14:31 | DRG 918 ==
LOC: ED 10:03 → INTOOBSV 12:59 → EDINP 12:59 → SUATTDRO 12:59 → 2S 15:16

== ENCOUNTER 2023-02-15 11:27 | Inpatient (IN) ==
[2023-02-15] MEDS ORDERED: hydrOXYzine HCl 25 MG TAB PO PRN (12:27)
[2023-02-15] MEDS ORDERED: SODIUM CHLORIDE 0.65% NA SOLN 45 ML (OCEAN) PRN (12:27)
[2023-02-15] MEDS ORDERED: BISMUTH SUBSALICYLATE LIQD 236 ML PO PRN (12:27)
[2023-02-15] MEDS ORDERED: ALUMINUM/MAGNESIUM SUSP 30 ML UDC PO PRN (12:27)
[2023-02-15] MEDS ORDERED: MAGNESIUM HYDROXIDE SUSP 30 ML UDC PO PRN (12:27)
[2023-02-15] MEDS ORDERED: ACETAMINOPHEN 325 MG TAB PO PRN (12:27)
[2023-02-15] MEDS: hydrOXYzine HCl 25 MG TAB PO PRN (22:35)
--- NOTE | 2023-02-16 12:16 | History & Physical ---
Date of Service February 16, 2023 Impression / Recommendations Impression 22 y/o man with chronic suicidality and self-injurious behavior by cutting and a previous overdose attempt 4 years ago for which he didn't seek treatment. He would seem to meet criteria for a major depressive episode, though I can't tell if it's recurrent or a single prolonged episode. Despite his disavowal, alcohol use seems to be a problem for him. He is currently minimizing the severity of his cutting (which required sutures of his chest) and overdose (which required n-acetylcysteine) and saying that he thinks it would be reasonable for him to be discharged to home. He's declining to share information with family. He's (mostly) voluntary for psychiatric admission, though if this were to change he clearly meets criteria for section 302 involuntary emergency psychiatric admission. Risks and benefits of, and alternatives to, the use of citalopram (Celexa) for Major Depression symptoms were reviewed. This discussion included but was not limited to issues known potentially to be associated with use of such medication, especially at high doses or with longer use, including sedation, weight gain, GI side effects, or rarely induction or worsening of suicidal thoughts about which there is an FDA warning for adolescents and young adults. Discussed the need to avoid abrupt cessation due to risk of discontinuation syndrome. The patient agreed to start a trial of citalopram. He was not open to MAT for AUD. Overall I spent a total of 67 minutes on the floor for this admission including review of chart records, review of test results, direct evaluation of the patient [id number], counseling the patient, reconciling and ordering medication, medication education with the patient, risk assessment, discussion during interdisciplinary treatment rounds, and documentation in the electronic health record. (1) Major depressive disorder: Active/Remission status: currently active Major depression episode severity: severe Major depression recurrence: unspecified whether recurrent Psychotic features: without psychotic features Qualified Code(s): F32.2 - Major depressive disorder, single episode, severe without psychotic features (2) Acetaminophen overdose: Encounter type: subsequent encounter Injury intent: intentional self-harm Qualified Code(s): T39.1X2D - Poisoning by 4-Aminophenol derivatives, intentional self-harm, subsequent encounter (3) Suicide attempt: (4) Alcohol use disorder: Plan The patient was admitted to the [facility] ([facility]) on q15 minute checks (behavioral with suicide precautions) for safety.The patient will participate in group, recreational, and milieu therapies and will be offered additional individual and family sessions as clinically appropriate. * start escitalopram 10 mg daily * In addition to the screening labs ordered in the ED, will order vitamin B12 level, folic acid level, 25-OH vitamin D level to rule out conditions more pertinent to psychiatric symptoms. Inventory Assets Strengths: has local supports, voluntary, intelligent, employed Needs: safety and stabilization, medication adjustment, additional coping skills, outpatient services Suicide Risk Level Suicide Risk Level: Moderate (q15 min suicide checks) (denies any current suicidal thoughts but recent high-risk overdose) Risk Factors Assessment Male: Yes : Yes Do You Have Access To A Gun?: No Health Problems: No Mental Health Diagnoses: Yes Substance Use Disorders: Yes Previous Attempt: Yes Previous Psychiatric Hospitalization: No Protective Factors Assessment : No Responsible for Young Children: No Supportive Family: Yes Psychiatric History Identifying Data MARYCARMEN MURRAY is a 22-year-old M who currently lives in [] [alone] with [], has a history of [], and was admitted on 02/15/23 14:41 on a [201 voluntary] [302 involuntary] commitment for []. Chief Complaint "I feel a lot better". History of Present Illness As part of a thorough review of the available medical records, I have read and confirmed the following note by the ED physician: "This 22-year-old male patient past medical history of previous suicide attempt about 4 years ago presents to the emergency department with complaints of Tylenol overdose. The patient states he took approximately 50 tablets of extra strength Tylenol at 5 AM this morning." the following note by the hospitalist: "Marycarmen is a 22-year-old male with a history of prior suicide attempt 4 years ago with ibuprofen who presents with intentional overdose with suicidality. Patient took 50 tablets of 650 mg/tab erxtra strength Tylenol at 5 AM. Marycarmen was seen at the bedside with a friend Amish. He reports a longstanding history of depression for many years for which she has not had pharmacologic or counseling treatment. Reports he did have a suicide attempt by anti-inflammatories impulsively around 4 years ago, did not seek treatment following this. He reports his depression has been persistent and while it has not particularly worsened he feels he has just become tired of feeling depressed. 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 He reports he had not been stockpiling medications and had not had a plan previously although he does have chronic persistent passive SI. He does have a history of cutting behavior and in particular cuts to the left thigh which he feels helps prevent him from progressing to "something worse ". 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 He denies recent stressors or worsening of his depression, just that it is always bad. He denies auditory and visual hallucinations, no history of psychosis. Denies family history of depression or suicidality. He denies chronic medical problems and takes no other medications. He denies any coingestions." the following note by the ED psychiatric case packer and sealer: "Met with Marycarmen at bedside accompanied by Dr. Rivero to complete brief mental health assessment. He states that he ingested "maybe 50" 500mg Tylenol tablets this morning at approximately 0500. When asked if this overdose was done in an attempt to end his life he responded, "I suppose that was the goal... I don't want to currently but I was drunk and just did it." He does admit to suicidal ideation for awhile even while sober. History of suicide attempt four years ago by means of ibuprofen overdose. Marycarmen describes this as "not as serious" and did not seek medical attention afterwards. While RNs were obtaining EKG for Marycarmen, his chest was noted to be covered in dried blood. Marycarmen admitted to cutting himself with a razor. He does endorse history of self-injurious behavior. Marycarmen does not wish to alert his parents at this time of his suicide attempt. He relays they are somewhat local, living in the [place] area. His friend Amish is here for support and is the one who brought him to the hospital this morning when Marycarmen advised him that he overdosed." and the following note by the psychiatric liaison nurse: "Met with patient for consult service/initial psych assessment. Patient resting in bed, 1:1 at bedside. He is A&Ox3, calm, cooperative and pleasant. Patient is s/p intentional overdose on Tylenol while intoxicated (ETOH). He is a [employer] student, majoring in [employer]. Patient lives with roommates off campus. Father lives in [place], mother lives in [place]. Patient reports a good relationship with father and has some contact with mother, but not as often. Patient's parents are unaware of hospitalization or events that have transpired; he DOES NOT want any information provided to parents and identifies his roommate/friend Amish as his primary contact and support. Patient reports a history of depression since adolescents. He has a history of SIB via cutting and it typically occurs when drinking/intoxicated; reports cutting 2x since October, including episode prior to overdose. He admits to 1 suicide attempt ~ 4 years ago via overdose on Ibuprofen, he did not report this therefore received no treatment. He denies history of inpatient or outpatient psychiatric care, including medications. Patient is unable to definitively state if his intentions were to after taking his recent overdose. He denies any specific triggers or stressors that caused him to feel suicidal. He reports feeling "grateful" that he is alive and does not feel this will happen again. He does not feel alcohol is problematic since he has never been through withdrawal. He does note that he becomes more depressed and impulsive while intoxicated hence, his plans to reduce/eliminate drinking. He would like to establish a psychiatric provider as well as therapy. Explained mental health process/medical clearance, 201 vs 302 and outpatient options. Patient prefers to be discharged with outpatient services when medically clear. He is aware psychiatrist will see him to give formal recommendations, he is unable to leave AMA at this time. Patient's roommate, Amish, arrived to visit with patient and was asked to wait in waiting room. Amish was notified when liaison was finished with patient. Amish made aware that patient did not give consent to release any information at this time. Provided general information about mental health process/medical clearance, 201 vs 302 and outpatient options. Amish reports he and patient talk often about feelings/suicidal thoughts and self harm thoughts. Amish is graduating next weekend and will move out of the apartment on Wednesday 02/21 (moving 3 hours away), another friend will be moving in (patient's friend from high school). Amish has concerns because patient does not talk openly with other friends/roommates. He has been encouraging patient to seek professional outpatient/therapy for some time but he would decline; he has also encouraged patient to reach out to his father but patient does not want to "burden" anyone else. Amish is very supportive and plans to continue to be as supportive as possible even after graduation. " Review of the medical record reveals no previous or outside psychiatric records as such, but had one ED visit with suicidal thoughts in November 2022. Review of pertinent labs reveals they are largely noncontributory except for acetaminophen level of 127 ug/mL. A urine toxicology screen was positive for acetaminophen only. BAL was 50.8 mg/dL. From my consultation note 02/14/2023: Pt endorses history as above. He has chronic, usually passive suicidal thoughts and uses cutting to relieve stress, especially when drinking. He has a history of NSAID overdose while intoxicated 4 years ago for which he did not seek treatment. He says he's had no previous psychiatric contact. He says he's been "depressed for years". Despite the apparent association between alcohol use and his suicide attempts, he doesn't see alcohol as a problem or as precipitating suicidal behavior. He's superficially willing to accept psychiatric treatment, albeit under some protest, because he thinks it would be OK for him to go home. He's declined to provide MYRNA for family because he doesn't want to "burden" them. 02/16/2023: Pt was transferred to the psychiatric service yesterday evening. He has continued to decline to provide information releases for anyone. Reports improvements in mood, expresses dismay that he's not already been discharged and that I suggest that discharge tomorrow seems very unlikely. He acknowledges the impulsive overdose while intoxicated but says I shouldn't be concerned about future risk because he plans not to drink to excess in the future. He is not open to the idea of abstaining from alcohol altogether. Past Psychiatric History Current Psychiatric Diagnosis: MDD Do You Have Access To A Gun?: No History of Previous Suicide Attempt: Yes Allergies Allergy/AdvReac Type Severity Reaction Status Date / Time No Known Allergies Allergy Unverified 02/14/23 11:49 Home Medications Medication Instructions Recorded Confirmed Type No Known Home Medications 11/29/22 11/29/22 History Family History Family History of: Doesn't Know Alcohol History Hx of Alcohol Use Over the Past 12 Months: Yes AUDIT Total Score: 6 Smoking Use Have You Smoked or Used Tobacco Products in the Last 30 Days: No Smoking Status: Never smoker Substance History Hx of Prescription Med Misuse Over the Past 12 Months: No Hx of Over the Counter Med Misuse Over the Past 12 Months: No Hx of Inhalent Misuse Over the Past 12 Months: No Hx of Organic Substance Use Over the Past 12 Months: No Hx of Illegal Substances/Street Drug Use Over Past 12 Months: No Problems as a Result of Past Substance Use: None Identified Personal History Highest Grade Completed: Some College Beliefs That Will Affect Care: None Patient History Medical History (Updated 02/16/23 @ 12:18 by Ej Mederos MD) Alcohol use disorder Acetaminophen overdose No pertinent past medical history No pertinent family history Surgical History No pertinent past surgical history Social History Smoking Status: Never smoker Hx Alcohol Use: Yes Alcohol type: beer Hx Substance Use: No Preferred Language: Thai Communication Ability: Effective Vice President Business [employer] Required: No Beliefs That Will Affect Care: None Current Living Situation: Other Current Living Situation Comment: roommate Feels Safe at Home: Yes Gender Identity: Male Assistive Devices: None Review of Systems Psychiatric: as per Subjective / HPI Physical Exam Psychiatric: Orientation: alert, oriented to person, oriented to place, oriented to time and cooperative (superficial) Eye Contact: good eye contact Motor Behavior: no abnormal motor movements Speech: normal rate/rhythm/volume of speech Affect: euthymic affect Mood: no depressed mood and no anxious mood Thought Process: linear/logical thought process Thought Content: reality based without delusions Suicidal Thoughts: + reports suicidal thoughts, + reports suicidal plan and + reports suicidal intent Homicidal Thoughts: denies homicidal thoughts Hallucinations: no auditory hallucinations and no visual hallucinations Cognition: recent memory grossly intact, remote memory grossly intact, attention grossly intact and language grossly intact Estimated Intelligence: consistent with education level Insight: + limited insight Judgment: + limited judgement Vital Signs (Past 24 Hours): Last Vital Signs Temp 36.7 C 02/16/23 06:38 Pulse 85 02/16/23 06:39 Resp 16 02/16/23 06:38 BP 132/90 02/16/23 06:39 O2 Del Method Room Air 02/15/23 15:38 Exam Statement: A physical exam was performed in the ED and by the admitting hospitalist for the purposes of medical clearance. I accept that physical as correct and adequate for the purposes of the inpatient physical exam. Results & Data (RUST) Current Inpatient Medications Current Inpatient Medications: Current Inpatient Medications Acetaminophen (Acetaminophen 325 Mg Tab) 650 mg PO Q4H PRN PRN Reason: Headache or Minor Fever Stop: 03/17/23 12:26 Al Hydrox/Mg Hydrox/Simethicone (Aluminum/Magnesium Susp 30 Ml Udc) 30 ml PO Q4H PRN PRN Reason: GI Upset Stop: 03/17/23 12:26 Bismuth Subsalicylate (Bismuth Subsalicylate Liqd 236 Ml) 15 ml PO PRN PRN PRN Reason: Loose Stool Stop: 03/17/23 12:26 Hydroxyzine HCl (Hydroxyzine Hcl 25 Mg Tab) 50 mg PO HSZ PRN PRN Reason: Insomnia Stop: 03/17/23 12:26 Last Admin: 02/15/23 22:35 Dose: 50 mg Hydroxyzine HCl (Hydroxyzine Hcl 25 Mg Tab) 25 mg PO Q4H PRN PRN Reason: Anxiety Stop: 03/17/23 12:26 Magnesium Hydroxide (Magnesium Hydroxide Susp 30 Ml Udc) 30 ml PO DAILY PRN PRN Reason: Constipation Stop: 03/17/23 12:26 Sodium Chloride (Sodium Chloride 0.65% Na Soln 45 Ml (Craig)) 1 - 2 sprays NA PRN PRN PRN Reason: Nasal Dryness/Congestion Stop: 03/17/23 12:26
[2023-02-16] MEDS: ESCITALOPRAM OXALATE 10 MG TAB PO SCH (16:03)
[2023-02-16 16:30] LABS: Folate (Folic Acid),Ser orPlas 15.89 ng/ml (>5.38)
[2023-02-16] MEDS: hydrOXYzine HCl 25 MG TAB PO PRN (22:04)
[2023-02-17] MEDS: ESCITALOPRAM OXALATE 10 MG TAB PO SCH (10:00)
--- NOTE | 2023-02-17 14:08 | Psychiatric Progress Note ---
Date of Service February 17, 2023 Impression / Recommendations Impression 22 y/o man with chronic suicidality and self-injurious behavior by cutting and a previous overdose attempt 4 years ago for which he didn't seek treatment. He would seem to meet criteria for a major depressive episode, though I can't tell if it's recurrent or a single prolonged episode. Despite his disavowal, alcohol use seems to be a problem for him. He is currently minimizing the severity of his cutting (which required sutures of his chest) and overdose (which required n-acetylcysteine) and saying that he thinks it would be reasonable for him to be discharged to home. He's declining to share information with family. He's (mostly) voluntary for psychiatric admission, though if this were to change he clearly meets criteria for section 302 involuntary emergency psychiatric admission. 02/17/2023: Slept well with hydroxyzine. Continues to report that his "mood is pretty good", says he no longer has any suicidal thoughts. He would like to be discharged as soon as possible. We discussed the need for a safe and appropriate discharge plan. Pt has a safety planning meeting tomorrow and discharge might be appropriate following this. Additional labs showed a severe vitamin D deficiency of 16.0 ng/mL but were otherwise normal. Discussed MAT for AUD again. Pt would like to start a trial of naltrexone. 02/16/2023: Risks and benefits of, and alternatives to, the use of escitalopram (Lexapro) for Major Depression symptoms were reviewed. This discussion included but was not limited to issues known potentially to be associated with use of such medication, especially at high doses or with longer use, including sedation, weight gain, GI side effects, or rarely induction or worsening of suicidal thoughts about which there is an FDA warning for adolescents and young adults. Discussed the need to avoid abrupt cessation due to risk of discontinuation syndrome. The patient agreed to start a trial of escitalopram. He was not open to MAT for AUD. (1) Major depressive disorder: (2) Acetaminophen overdose: (3) Suicide attempt: (4) Alcohol use disorder: (5) Vitamin D deficiency: Plan 02/17/2023: * continue escitalopram 10 mg daily - started 02/16/2023 * start ergocalciferol 50,000 IU twice weekly for 8 weeks * start naltrexone 50 mg QAM 02/16/2023: The patient was admitted to the [facility] ([facility] mental health unit) on q15 minute checks (behavioral with suicide precautions) for safety.The patient will participate in group, recreational, and milieu therapies and will be offered additional individual and family sessions as clinically appropriate. * start escitalopram 10 mg daily * In addition to the screening labs ordered in the ED, will order vitamin B12 level, folic acid level, 25-OH vitamin D level to rule out conditions more pertinent to psychiatric symptoms. Inventory Assets Strengths: has local supports, voluntary, intelligent, employed Needs: safety and stabilization, medication adjustment, additional coping skills, outpatient services Suicide Risk Level Suicide Risk Level: Moderate (q15 min suicide checks) (denies any current suicidal thoughts but recent high-risk overdose) Risk Factors Assessment Male: Yes : Yes Do You Have Access To A Gun?: No Health Problems: No Mental Health Diagnoses: Yes Substance Use Disorders: Yes Previous Attempt: Yes Previous Psychiatric Hospitalization: No Protective Factors Assessment : No Responsible for Young Children: No Supportive Family: Yes Interval History Identifying Information MARYCARMEN MURRAY is a 22-year-old M who currently lives in [place] with roommates, has a history of depression and SIB, and was admitted on transfer from the medical service on 02/15/23 14:41 on a 201 voluntary commitment for overdose. Chief Complaint "Pretty good". Review of Systems Sleep Information Total Hours of Sleep: 6 Sleep Comments: Pt requested PRN Vistaril for sleep Meal Information Percent Meal Consumed - Breakfast: 100 Percent Meal Consumed - Lunch: 100 Percent Meal Consumed - Dinner: 100 Subjective Subjective The patient was seen and assessed and interval progress reviewed in a multidisciplinary team meeting with the treatment team. For details, see the "Impression" section. Overall I spent a total of 49 minutes for this inpatient follow-up including review of chart records, review of test results, direct evaluation of the patient [id number], counseling the patient, reconciling and ordering medication, medication education with the patient, risk assessment, discussion during interdisciplinary treatment rounds, and documentation in the electronic health record. Physical Exam Psychiatric Orientation: alert, oriented to person, oriented to place, oriented to time and cooperative (superficial) Eye Contact: good eye contact Motor Behavior: no abnormal motor movements Speech: normal rate/rhythm/volume of speech Affect: euthymic affect Mood: no depressed mood and no anxious mood Thought Process: linear/logical thought process Thought Content: reality based without delusions Suicidal Thoughts: + reports suicidal thoughts, + reports suicidal plan and + reports suicidal intent Homicidal Thoughts: denies homicidal thoughts Hallucinations: no auditory hallucinations and no visual hallucinations Cognition: recent memory grossly intact, remote memory grossly intact, attention grossly intact and language grossly intact Estimated Intelligence: consistent with education level Insight: + limited insight Judgment: + limited judgement Vital Signs (Past 24 Hours) Last Vital Signs Temp 36.8 C 02/17/23 06:40 Pulse 101 H 02/17/23 06:41 Resp 16 02/17/23 06:40 BP 152/76 H 02/17/23 06:41 O2 Del Method Room Air 02/15/23 15:38 Results & Data ([facility]) Laboratory Results Laboratory Results - last 24 hr 02/16/23 15:01 Vitamin B12 473 25-OH Vitamin D Total 16.0 L Folate 15.89 TSH 0.883 Current Inpatient Medications Current Inpatient Medications: Current Inpatient Medications Acetaminophen (Acetaminophen 325 Mg Tab) 650 mg PO Q4H PRN PRN Reason: Headache or Minor Fever Stop: 03/17/23 12:26 Al Hydrox/Mg Hydrox/Simethicone (Aluminum/Magnesium Susp 30 Ml Udc) 30 ml PO Q4H PRN PRN Reason: GI Upset Stop: 03/17/23 12:26 Bismuth Subsalicylate (Bismuth Subsalicylate Liqd 236 Ml) 15 ml PO PRN PRN PRN Reason: Loose Stool Stop: 03/17/23 12:26 Escitalopram Oxalate (Escitalopram Oxalate 10 Mg Tab) 10 mg PO QAM ALLEN Stop: 03/18/23 14:14 Last Admin: 02/17/23 10:00 Dose: 10 mg Hydroxyzine HCl (Hydroxyzine Hcl 25 Mg Tab) 50 mg PO HSZ PRN PRN Reason: Insomnia Stop: 03/17/23 12:26 Last Admin: 02/16/23 22:04 Dose: 50 mg Hydroxyzine HCl (Hydroxyzine Hcl 25 Mg Tab) 25 mg PO Q4H PRN PRN Reason: Anxiety Stop: 03/17/23 12:26 Magnesium Hydroxide (Magnesium Hydroxide Susp 30 Ml Udc) 30 ml PO DAILY PRN PRN Reason: Constipation Stop: 03/17/23 12:26 Sodium Chloride (Sodium Chloride 0.65% Na Soln 45 Ml ([place])) 1 - 2 sprays NA PRN PRN PRN Reason: Nasal Dryness/Congestion Stop: 03/17/23 12:26 Mental Health & Subst Abuse Tx Therapist Name of Therapist: Estelle Valenzuela Therapist's Therapy Appointment Comment: [address], [address], [place] [address] Consulting Application Engineer Name of Consulting Application Engineer: [facility] Phone Number for Consulting Application Engineer: [phone] Date of Appointment with Consulting Application Engineer: 02/22/23 Time of Appointment with Consulting Application Engineer: 2:00 PM Case Management Appointment Comment: Link will be sent to [facility] email. Post Discharge Appointments Primary Care Physician Name Of Family Doctor/PCP: [facility] Date of Future Appointment with PCP: 03/15/22 Time of Appointment with PCP: 2:20 PM Provider Appointment Comment: [address], [place] [address] (1) Major depressive disorder Active/Remission status: currently active Major depression episode severity: severe Major depression recurrence: unspecified whether recurrent Psychotic features: without psychotic features Qualified Code(s): F32.2 - Major depressive disorder, single episode, severe without psychotic features (2) Acetaminophen overdose Encounter type: subsequent encounter Injury intent: intentional self-harm Qualified Code(s): T39.1X2D - Poisoning by 4-Aminophenol derivatives, intentional self-harm, subsequent encounter
[2023-02-17] MEDS ORDERED: ERGOCALCIFEROL 50,000 UNITS 1250 MCG CAP PO SCH (14:15)
[2023-02-18] MEDS: ESCITALOPRAM OXALATE 10 MG TAB PO SCH (08:46)
--- NOTE | 2023-02-18 09:39 | Discharge Summary ---
Date of Service February 18, 2023 History of Present Illness As part of a thorough review of the available medical records, I have read and confirmed the following note by the ED physician: "This 22-year-old male patient past medical history of previous suicide attempt about 4 years ago presents to the emergency department with complaints of Tylenol overdose. The patient states he took approximately 50 tablets of extra strength Tylenol at 5 AM this morning." the following note by the hospitalist: "Valentin is a 22-year-old male with a history of prior suicide attempt 4 years ago with ibuprofen who presents with intentional overdose with suicidality. Patient took 50 tablets of 650 mg/tab erxtra strength Tylenol at 5 AM. Valentin was seen at the bedside with a friend Amish. He reports a longstanding history of depression for many years for which she has not had pharmacologic or counseling treatment. Reports he did have a suicide attempt by anti-inflammatories impulsively around 4 years ago, did not seek treatment following this. He reports his depression has been persistent and while it has not particularly worsened he feels he has just become tired of feeling depressed. He reports he drank alcohol last night, does not quantify how much, and notes he was not drinking with the intention to self-harm or commit suicide but in the health care legal assistant impulsively took half a bottle of Tylenol. He reports he had not been stockpiling medications and had not had a plan previously although he does have chronic persistent passive SI. He does have a history of cutting behavior and in particular cuts to the left thigh which he feels helps prevent him from progressing to "something worse ". 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 He denies recent stressors or worsening of his depression, just that it is always bad. He denies auditory and visual hallucinations, no history of psychosis. Denies family history of depression or suicidality. He denies chronic medical problems and takes no other medications. He denies any coingestions." the following note by the ED psychiatric unclaimed property manager: "Met with Valentin at bedside accompanied by Dr. Rivero to complete brief mental health assessment. He states that he ingested "maybe 50" 500mg Tylenol tablets this morning at approximately 0500. When asked if this overdose was done in an attempt to end his life he responded, "I suppose that was the goal... I don't want to currently but I was drunk and just did it." He does admit to suicidal ideation for awhile even while sober. History of suicide attempt four years ago by means of ibuprofen overdose. Valentin describes this as "not as serious" and did not seek medical attention afterwards. While RNs were obtaining EKG for Valentin, his chest was noted to be covered in dried blood. Valentin admitted to cutting himself with a razor. He does endorse history of self-injurious behavior. Valentin does not wish to alert his parents at this time of his suicide attempt. He relays they are somewhat local, living in the [place] area. His friend Amish is here for support and is the one who brought him to the hospital this morning when Valentin advised him that he overdosed." and the following note by the psychiatric liaison nurse: "Met with patient for consult service/initial psych assessment. Patient resting in bed, 1:1 at bedside. He is A&Ox3, calm, cooperative and pleasant. Patient is s/p intentional overdose on Tylenol while intoxicated (ETOH). He is a [employer] student, majoring in [employer]. Patient lives with roommates off campus. Father lives in [place], mother lives in [place]. Patient reports a good relationship with father and has some contact with mother, but not as often. Patient's parents are unaware of hospitalization or events that have transpired; he DOES NOT want any information provided to parents and identifies his roommate/friend Amish as his primary contact and support. Patient reports a history of depression since adolescents. He has a history of SIB via cutting and it typically occurs when drinking/intoxicated; reports cutting 2x since October, including episode prior to overdose. He admits to 1 suicide attempt ~ 4 years ago via overdose on Ibuprofen, he did not report this therefore received no treatment. He denies history of inpatient or outpatient psychiatric care, including medications. Patient is unable to definitively state if his intentions were to after taking his recent overdose. He denies any specific triggers or stressors that caused him to feel suicidal. He reports feeling "grateful" that he is alive and does not feel this will happen again. He does not feel alcohol is problematic since he has never been through withdrawal. He does note that he becomes more depressed and impulsive while intoxicated hence, his plans to reduce/eliminate drinking. He would like to establish a psychiatric provider as well as therapy. Explained mental health process/medical clearance, 201 vs 302 and outpatient options. Patient prefers to be discharged with outpatient services when medically clear. He is aware psychiatrist will see him to give formal recommendations, he is unable to leave AMA at this time. Patient's roommate, Amish, arrived to visit with patient and was asked to wait in waiting room. Amish was notified when liaison was finished with patient. Amish made aware that patient did not give consent to release any information at this time. Provided general information about mental health process/medical clearance, 201 vs 302 and outpatient options. Amish reports he and patient talk often about feelings/suicidal thoughts and self harm thoughts. Amish is graduating next weekend and will move out of the apartment on Wednesday 02/21 (moving 3 hours away), another friend will be moving in (patient's friend from high school). Amish has concerns because patient does not talk openly with other friends/roommates. He has been encouraging patient to seek professional outpatient/therapy for some time but he would decline; he has also encouraged patient to reach out to his father but patient does not want to "burden" anyone else. Amish is very supportive and plans to continue to be as supportive as possible even after graduation. " Review of the medical record reveals no previous or outside psychiatric records as such, but had one ED visit with suicidal thoughts in November 2022. Review of pertinent labs reveals they are largely noncontributory except for acetaminophen level of 127 ug/mL. A urine toxicology screen was positive for acetaminophen only. BAL was 50.8 mg/dL. From my consultation note 02/14/2023: Pt endorses history as above. He has chronic, usually passive suicidal thoughts and uses cutting to relieve stress, especially when drinking. He has a history of NSAID overdose while intoxicated 4 years ago for which he did not seek treatment. He says he's had no previous psychiatric contact. He says he's been "depressed for years". Despite the apparent association between alcohol use and his suicide attempts, he doesn't see alcohol as a problem or as precipitating suicidal behavior. He's superficially willing to accept psychiatric treatment, albeit under some protest, because he thinks it would be OK for him to go home. He's declined to provide MYRNA for family because he doesn't want to "burden" them. 02/16/2023: Pt was transferred to the psychiatric service yesterday evening. He has continued to decline to provide information releases for anyone. Reports improvements in mood, expresses dismay that he's not already been discharged and that I suggest that discharge tomorrow seems very unlikely. He acknowledges the impulsive overdose while intoxicated but says I shouldn't be concerned about future risk because he plans not to drink to excess in the future. He is not open to the idea of abstaining from alcohol altogether. Physical Exam Psychiatric Orientation: alert, oriented to person, oriented to place, oriented to time and cooperative (superficial) Eye Contact: good eye contact Motor Behavior: no abnormal motor movements Speech: normal rate/rhythm/volume of speech Affect: euthymic affect Mood: no depressed mood and no anxious mood Thought Process: linear/logical thought process Thought Content: reality based without delusions Suicidal Thoughts: + reports suicidal thoughts, + reports suicidal plan and + reports suicidal intent Homicidal Thoughts: denies homicidal thoughts Hallucinations: no auditory hallucinations and no visual hallucinations Cognition: recent memory grossly intact, remote memory grossly intact, attention grossly intact and language grossly intact Estimated Intelligence: consistent with education level Insight: + limited insight Judgment: + limited judgement Vital Signs (Past 24 Hours) Last Vital Signs Temp 36.6 C 02/18/23 07:02 Pulse 48 L 02/18/23 07:04 Resp 16 02/18/23 07:02 BP 102/65 02/18/23 07:04 O2 Del Method Room Air 02/15/23 15:38 See admission H&P and DOD assessment. Principal Diagnosis Major Depressive Disorder, Single Episode, Severe, without Psychotic Features Psychiatric Data See daily stay summary. In short, safety was maintained and the patient was cooperative with care. Medication changes included starting escitalopram 10 mg daily and naltrexone 50 mg daily and they tolerated this well. A family session was held and safety plan was completed prior to discharge. 02/18/2023: Pt continues to report near-euthymic mood and to disavow any suicidal thoughts. He evidences more insight into why we're concerned about his overdose and cutting, but he continues to emphasize that this happened when he was intoxicated and that he intends to control his drinking from now on. He is not ready to consider complete abstinence from alcohol but would like to use naltrexone. 02/17/2023: Slept well with hydroxyzine. Continues to report that his "mood is pretty good", says he no longer has any suicidal thoughts. He would like to be discharged as soon as possible. We discussed the need for a safe and appropriate discharge plan. Pt has a safety planning meeting tomorrow and discharge might be appropriate following this. Additional labs showed a severe vitamin D deficiency of 16.0 ng/mL but were otherwise normal. Discussed MAT for AUD again. Pt would like to start a trial of naltrexone. 02/16/2023: Risks and benefits of, and alternatives to, the use of escitalopram (Lexapro) for Major Depression symptoms were reviewed. This discussion included but was not limited to issues known potentially to be associated with use of such medication, especially at high doses or with longer use, including sedation, weight gain, GI side effects, or rarely induction or worsening of suicidal thoughts about which there is an FDA warning for adolescents and young adults. Discussed the need to avoid abrupt cessation due to risk of discontinuation syndrome. The patient agreed to start a trial of escitalopram. Day of Discharge Assessment Today the patient voices readiness for discharge. They note improvement in mood and deny thoughts to harm self or others. Thoughts remain organized and they are improved from admission. There is no evidence of psychosis. They agree to take mediations as prescribed and keep follow-up appointments. They are stable for discharge to outpatient level of care. Overall I spent a total of 36 minutes on the floor for this discharge including review of chart records, review of test results, direct evaluation of the patient [id number], counseling the patient, reconciling and ordering medication, medication education with the patient, risk assessment, discussion during interdisciplinary treatment rounds, and documentation in the electronic health record. Transition of Care Transition Of Care Record: was reviewed with the patient Advance Directives Advance Directives Information Provided: Yes Advance Directives: No Mental Health Advance Directive: No Advance Directives on File: No Living Will: No Power of Brick Setter: No Advance Directives Reason:: Declines as Mental Health Visit. Suicide Risk Level Suicide Risk Level Comments: See admission H&P and DOD assessment. Risk Factors Assessment Male: Yes : Yes Do You Have Access To A Gun?: No Health Problems: No Mental Health Diagnoses: Yes Substance Use Disorders: Yes Previous Attempt: Yes Previous Psychiatric Hospitalization: No Protective Factors Assessment : No Responsible for Young Children: No Supportive Family: Yes Tobacco Cessation at Discharge Tobacco Cessation Medication Prescribed at Discharge: Not Applicable/Non-Smoker Total Time Total Time Spent: Greater Than 30 Minutes (36) Total Time Includes: Examination of the patient, Discharge Planning, Medication Reconciliation and As well as (documentation) Discharge Data Lab Results 02/16/23 15:01 Vitamin B12 473 25-OH Vitamin D Total 16.0 L Folate 15.89 TSH 0.883 Hospital Course (1) Major depressive disorder: (2) Acetaminophen overdose: (3) Suicide attempt: (4) Alcohol use disorder: (5) Vitamin D deficiency: Plan 02/17/2023: * continue escitalopram 10 mg daily - started 02/16/2023 * start ergocalciferol 50,000 IU twice weekly for 8 weeks * start naltrexone 50 mg QAM 02/16/2023: The patient was admitted to the [facility] ([facility] mental health unit) on q15 minute checks (behavioral with suicide precautions) for safety.The patient will participate in group, recreational, and milieu therapies and will be offered additional individual and family sessions as clini marshall appropriate. * start escitalopram 10 mg daily * In addition to the screening labs ordered in the ED, will order vitamin B12 level, folic acid level, 25-OH vitamin D level to rule out conditions more pertinent to psychiatric symptoms. Mental Health & Subst Abuse Tx Therapist Name of Therapist: [facility] Date of Therapist Appointment: 03/03/23 Time of Therapist Appointment: arrive at 10:30 AM Therapy Appointment Comment: [address] [place] [address], [address], [place] [address] Mammalogy Teacher Name of Mammalogy Teacher: [employer] [facility] Phone Number for Mammalogy Teacher: [phone] Date of Appointment with Mammalogy Teacher: 02/22/23 Time of Appointment with Mammalogy Teacher: 2:00 PM Case Management Appointment Comment: Link will be sent to [employer] email. Post Discharge Appointments Primary Care Physician Name Of Family Doctor/PCP: [facility] Date of Future Appointment with PCP: 03/15/22 Time of Appointment with PCP: 2:20 PM Provider Appointment Comment: [address] [place] [address] Smoking Cessation Counseling Tobacco Cessation Medication Prescribed at Discharge: Not Applicable/Non-Smoker Discharge Plan Discharge Items Patient Disposition: Home - Self-Care Reason For Visit: MDD Discharge Diagnosis: Major Depressive Disorder, Single Episode, Severe, without Psychotic Features Activity: Resume your previous activity Non-emergency contact: Primary Care Provider and Psychiatrist Call non-emergency contact if: you have any medication questions and your symptoms worsen Follow-up/Referrals: PCP,NO [Primary Care Provider] - Diet: Regular Addtl Attending Provider Instructions: SPECIAL CARE INSTRUCTIONS: 1. Follow through with your scheduled aftercare appointments. If unable to keep an appointment, please call to reschedule. 2. Take your medication only as prescribed. Medication should not be changed or stopped without the approval of your doctor. In the event of worsening symptoms or concerns about side effects, contact your doctor immediately. 3. Utilize new healthy coping skills, anger management skills, and stress management skills learned during your hospitalization. Journal feelings and process them with a support person. Identify stressors or situations that may result in relapse, deterioration or inappropriate behaviors and develop a plan to deal with those issues. 4. If your coping skills are ineffective and you are in crisis, contact your outpatient providers for direction. If unable to reach your providers, please call the [facility] CRISIS LINE AT , go to the [facility] walk-in center at [address] [place] [address], [facility], or go to the closest Emergency Room. 5. Avoid alcohol and un-prescribed drugs. 6. You have been provided with the Mental Health Advance Directives Pamphlet for your review. 7. Your condition is stable for discharge to outpatient level of care, but recovery is an ongoing process. Ifthoughts to harm yourself or others return, follow the safety plan developed during your stay. Planning for a safe return home includes securing weapons. Our treatment team recommends weaponsbe removed from the home until your outpatient provider reassesses your progress. In rare cases where the items themselvescannot be removed, guns and ammunitionshould be secured separatelyand keys stored by a reliable personoutside of the home. If you were admitted on an involuntary commitment, the police or other legal authorities may be involved in this process. AFTERCARE APPOINTMENTS: * Please call your insurance company prior to your scheduled appointment to confirm your aftercare providers are covered. Take your insurance information to your appointments. WHO TO CALL AND WHEN: Medical Emergencies: For questions or emergencies related to your hospital stay, please contact the Inpatient Behavioral Health Unit at [phone]. A department clinician is on-call 28/09 for the Behavioral Health Unit for emergencies At any time you feel your situation is an emergency, you may also call 911 immediately. VITAMIN D For your severe Vitamin D deficiency, continue prescription Vitamin D2 (ergocalciferol) 50,000 IU one capsule by mouth twice a week for 8 weeks. When the prescription Vitamin D2 is finished, start [id number] Vitamin D3 (cholecalciferol) 5,000 IU one capsule by mouth every day. After a month of daily Vitamin D3 5,000 IU you should have your Vitamin D level re-checked. Pending Studies at Discharge: No Stand-Alone Forms: My [employer], Smoking Cessation Medications and DC Order Prescriptions: New ergocalciferol (vitamin D2) 1,250 mcg (50,000 unit) Capsule 50,000 unit PO SuWe@0900 60 Days Qty: 15 0RF escitalopram oxalate 10 mg Tablet 10 mg PO QAM 30 Days Qty: 30 0RF naltrexone 50 mg tablet 50 mg PO DAILY Qty: 30 0RF Discharge Orders: Discharge Order (Routine); Ordered 02/18/23 Ordered By: Ej Mederos Admission Data Admit Date/Time: 02/15/23 14:41 Attending Provider: Ej Mederos Admit Provider: Ej Mederos Primary Care Provider: PCP,NO Other Interventions: Discharge Summary Assessment (RN) Last Done: 02/18/23 10:10 Coding Level of Care Code 47567 D/C day mgmt > 30 min Diagnoses Current severe episode of major depressive disorder without psychotic features, unspecified whether recurrent F32.2 Active/Remission status: currently active Major depression episode severity: severe Major depression recurrence: unspecified whether recurrent Psychotic features: without psychotic features Intentional acetaminophen overdose, subsequent encounter T39.1X2D Encounter type: subsequent encounter Injury intent: intentional self-harm Suicide attempt T14.91XA Alcohol use disorder F10.90 Vitamin D deficiency E55.9 Time Spent (min) 36
== END 2023-02-18 10:40 | disposition home or self-care (01) | DRG 885 ==
LOC: 3S 14:41